=== PATIENT | male | born 1945 | race Caucasian/White ===

== ENCOUNTER 2017-01-31 20:56 | Inpatient (IN) | payer OTHER ==
--- NOTE | 2017-01-31 21:21 | HP ---
CIWA Score - CIWA Score Nausea/Vomitin Muscle Tremors: 3 Anxiety: 3 Agitation: 2 Paroxysmal Sweats: 1-Minimal Palms Moist Orientation: 0-Oriented Tacttile Disturbances: 2-Mild Itch/Numbness/Burn Auditory Disturbances: 2-Mild Harshness/Frighten Visual Disturbances: 1-Very Mild Sensitivity Headache: 2-Mild CIWA-Ar Total Score: 19 Admission ROS BHS - HPI Chief Complaint: i need help to stop drinking alcohol Allergies/Adverse Reactions: Allergies Allergy/AdvReac Type Severity Reaction Status Date / Time No Known Allergies Allergy Verified 01/31/17 21:17 History of Present Illness: this 71 years old male with alcohol dependence,seeking help to stop drinking, last treatment in 2014 [facility] alcohol related seizure in 2014 longest period of sobriety 5 years and one day ambulation with cane frequent falls Exam Limitations: No Limitations - Ebola screening Have you traveled outside of the country in the last 21 days: No Have you had contact with anyone from an Ebola affected area: No Do you have a fever: No - Review of Systems Constitutional: Chills, Loss of Appetite, Malaise, Night Sweats, Changes in sleep, Unintentional Wgt. Loss EENT: reports: Nose Congestion Respiratory: reports: Other (asthma) Cardiac: reports: No Symptoms Reported GI: reports: Constipated, Nausea, Vomiting, Abdominal cramping : reports: No Symptoms Reported Musculoskeletal: reports: Back Pain, Muscle Pain Integumentary: reports: Dryness Neuro: reports: Headache, Tremors Endocrine: reports: No Symptoms Reported Hematology: reports: No Symptoms Reported Psychiatric: reports: No Sypmtoms Reported, Judgement Intact, Mood/Affect Appropiate, Orientated x3 Patient History - Patient Medical History Hx Anemia: No Hx Asthma: Yes (on albuterol inhaler) Hx Chronic Obstructive Pulmonary Disease (COPD): No Hx Cancer: No Hx Cardiac Disorders: No Hx Congestive Heart Failure: No Hx Hypertension: Yes (no medication) Hx Hypercholesterolemia: No Hx Pacemaker: No HX Cerebrovascular Accident: No Hx Seizures: Yes (alcohol related seizure) Hx Dementia: No Hx Diabetes: No Hx Gastrointestinal Disorders: Yes (gerd) Hx Liver Disease: No Hx Genitourinary Disorders: No Hx Sexually Transmitted Disorders: No Hx Renal Disease (ESRD): No Hx Thyroid Disease: No Hx Human Immunodeficiency Virus (HIV): No (last tested 2004) Hx Hepatitis C: No Hx Depression: No Hx Suicide Attempt: No Hx Bipolar Disorder: No Hx Schizophrenia: No Other Medical History: no suicidal,no homicidal - Patient Surgical History Past Surgical History: Yes Other Surgical History: hemorrhiodectomy at age of 15 - PPD History Previous Implant?: Yes Documented Results: Negative w/o proof Implanted On Prior [facility] Admission?: No PPD to be Administered?: Yes - Smoking Cessation Smoking history: Former smoker Have you smoked in the past 12 months: No Initiated information on smoking cessation: Yes 'Breaking Loose' booklet given: 01/31/17 - Substance & Tx. History Hx Alcohol Use: Yes Hx Substance Use: No Substance Use Type: Alcohol Hx Substance Use Treatment: Yes (last 2014 at [facility]) - Substances Abused Alcohol Route: Oral Frequency: Daily Amount used: 2pints of vodka Age of first use: 10 Date of Last Use: 01/31/17 Family Disease History - Family Disease History Family Disease History: Other: Father (alcohol ,,alzeimer) Admission Physical Exam S - Vital Signs Vital Signs: Vital Signs Temperature 98.2 F 01/31/17 21:17 Pulse Rate 87 01/31/17 21:17 Respiratory Rate 18 01/31/17 21:17 Blood Pressure 126/73 01/31/17 21:17 O2 Sat by Pulse Oximetry (%) - Physical General Appearance: Yes: Moderate Distress, Tremorous, Irritable, Sweating, Anxious HEENTM: Yes: Normal ENT Inspection, CARLYN, Pharynx Normal Respiratory: Yes: Lungs Clear, Normal Breath Sounds, No Respiratory Distress Neck: Yes: Within Normal Limits Breast: Yes: Within Normal Limits Cardiology: Yes: Within Normal Limits, Regular Rhythm, Regular Rate, S1, S2 Abdominal: Yes: Within Normal Limits, Normal Bowel Sounds, Non Tender, Soft Genitourinary: Yes: Within Normal Limits Back: Yes: Muscle Spasm Musculoskeletal: Yes: Back pain, Muscle Pain Extremities: Yes: Within Normal Limits, Normal Capillary Refill, Normal Inspection, Normal Range of Motion, Tremors, Other (pain in the left knee) Neurological: Yes: Within Normal Limits, financial aid manager II-XII NML intact, Fully Oriented, Alert, Motor Strength 5/5 Integumentary: Yes: Dry Lymphatic: Yes: Within Normal Limits - Diagnostic (1) Alcohol dependence with uncomplicated withdrawal Current Visit: Yes Status: Acute (2) Alcohol related seizure Current Visit: Yes Status: Acute (3) Syncope Current Visit: Yes Status: Acute (4) Asthma Current Visit: Yes Status: Acute (5) GERD (gastroesophageal reflux disease) Current Visit: Yes Status: Acute (6) Arthritis of left knee Current Visit: Yes Status: Acute (7) Frequent falls Current Visit: Yes Status: Acute (8) Use of cane as ambulatory aid Current Visit: Yes Status: Acute Cleared for Admission S - Detox or Rehab [facility] Level of Care: Medically Managed Detox Regimen/Protocol: [place] Urine Drug Screen - Test Device Lot Number: [id number] Expiration Date: 10/29/18 - Control Is Test Valid: Yes - Results Drug Screen Negative: Yes
[2017-01-31] MEDS ORDERED: LOPERAMIDE HCL 2 MG CAPSULE PO PRN (21:47)
[2017-01-31] MEDS ORDERED: MENTHOL/PHENOL 1 EACH UD MM PRN (21:47)
[2017-01-31] MEDS ORDERED: MAGNESIUM HYDROX 2400MG/30ML ORAL SUSPENSION 30 ML CUP PO PRN (21:47)
[2017-01-31] MEDS ORDERED: MAG HYDROX/AL HYDROX/SIMETH 30 ML UNIT-DOSE CUP PO PRN (21:47)
[2017-01-31] MEDS ORDERED: P-EPHED 60MG/TRIPROLIDI 2.5MG TABLET PO PRN (21:47)
[2017-01-31] MEDS ORDERED: chlordiazePOXIDE HCL 25 MG CAPSULE PO ONE (21:47)
[2017-01-31] MEDS ORDERED: IBUPROFEN 400 MG TABLET (FP) PO PRN (21:47)
[2017-01-31] MEDS ORDERED: ACETAMINOPHEN 325 MG TABLET (FP) PO PRN (21:47)
[2017-01-31] MEDS ORDERED: diphenhydrAMINE HCL 50 MG CAPSULE PO PRN (21:47)
[2017-01-31] MEDS ORDERED: chlordiazePOXIDE HCL 25 MG CAPSULE PO PRN (21:47)
[2017-01-31] MEDS ORDERED: guaiFENesin/D-METHORPHAN HB 10 ML UNIT-DOSE CUPS PO PRN (21:47)
[2017-01-31] MEDS ORDERED: MAGNESIUM CITRATE 300 ML BOTTLE PO PRN (21:47)
[2017-01-31] MEDS ORDERED: ALBUTEROL SO4 6.7 GM HFA INHALER IH PRN (21:51)
[2017-01-31] MEDS: chlordiazePOXIDE HCL 25 MG CAPSULE PO SCH (23:07)
[2017-01-31] MEDS: THIAMINE HCL 100 MG TABLET (FP) PO SCH (23:21)
[2017-01-31] MEDS: BUDESONIDE/FORMETEROL FUMARATE 80/4.5 mcg INHALER IH SCH (23:22)
[2017-02-01] MEDS: chlordiazePOXIDE HCL 25 MG CAPSULE PO SCH ×4 (06:12→22:43)
[2017-02-01] MEDS: BUDESONIDE/FORMETEROL FUMARATE 80/4.5 mcg INHALER IH SCH ×2 (10:00→22:41)
--- NOTE | 2017-02-01 10:16 | PN ---
S CIWA - CIWA Score Nausea/Vomitin-Int. Nausea w/Dry Heave Muscle Tremors: 4-Moderate,w/Arms Extend Anxiety: 4-Mod. Anxious/Guarded Agitation: 4-Moderately Restless Paroxysmal Sweats: 3 Orientation: 0-Oriented Tacttile Disturbances: 1-Very Mild Itch/Numbness Auditory Disturbances: 0-None Visual Disturbances: 0-None Headache: 1-Very Mild CIWA-Ar Total Score: 21 BHS Progress Note (SOAP) Subjective: nausea, sweats, interrupted sleep, anxiety, indigestion, GERD reported requesting medication Objective: 02/01/17 10:15 Vital Signs - 8 hr 02/01/17 02/01/17 03:30 06:17 Temperature 98.1 F Pulse Rate 89 Respiratory 18 18 Rate Blood Pressure 126/79 labs pending Assessment: 02/01/17 10:15 withdrawal sx Plan: cont detox
[2017-02-01 10:32] LABS: MCHC 34.6 g/dl (32.0-35.9); MEAN CELL VOLUME 109.8 fl (80-96); MEAN PLT VOLUME 9.1 fl (7.5-11.1); PLATELET COUNT 169 K/MM3 (134-434); RDW 14.3 % (11.9-15.9); WHITE BLOOD COUNT 6.3 K/mm3 (4.0-10.0)
[2017-02-01 10:59] LABS: ALBUMIN 3.4 g/dl (3.4-5.0); ALK PHOS 49 U/L (45-117); ANION GAP 12 (8-16); BILIRUBIN,TOTAL 1.6 mg/dL (0.2-1.0); CALCIUM 8.5 mg/dL (8.5-10.1); CO2 32 mmol/L (21-32); GLUCOSE,RANDOM 90 mg/dL (74-106); SGOT/AST 38 U/L (15-37); SGPT/ALT 23 U/L (12-78); TOT PROT 6.8 g/dl (6.4-8.2)
[2017-02-01] MEDS: PRENATAL VITAMINS W/ FOLIC ACID TABLET (FP) PO SCH (11:18)
[2017-02-01] MEDS: PANTOPRAZOLE 40 MG TABLET (FP) PO SCH (11:21)
--- NOTE | 2017-02-01 13:54 | EKG ---
Test Reason : Blood Pressure : / mmHG Vent. Rate : 087 BPM Atrial Rate : 087 BPM P-R Int : 144 ms QRS Dur : 072 ms QT Int : 364 ms P-R-T Axes : 079 -06 057 degrees QTc Int : 438 ms NORMAL SINUS RHYTHM BASE LINE ARTIFACTS RSR' OR QR PATTERN IN V1 SUGGESTS RIGHT VENTRICULAR CONDUCTION DELAY POSSIBLE LEFT ATRIAL ENLARGEMENT SEPTAL INFARCT , AGE UNDETERMINED CANNOT BE EXCLUDED ABNORMAL ECG NO PREVIOUS ECGS AVAILABLE REPEAT EKG IF CLINICALLY INDICATED Confirmed by CHASTITY VAZQUEZ MD ([id number]) on 02/01/2017 1:54:40 PM Referred By: Confirmed By:CHASTITY VAZQUEZ MD
[2017-02-01] MEDS ORDERED: ONDANSETRON *ODT* 4 MG TABLET SL PRN (15:31)
[2017-02-01] MEDS ORDERED: ONDANSETRON *ODT* 4 MG TABLET SL ONE (15:31)
[2017-02-01] MEDS: THIAMINE HCL 100 MG TABLET (FP) PO SCH (22:41)
[2017-02-02] MEDS: chlordiazePOXIDE HCL 25 MG CAPSULE PO SCH ×4 (06:48→17:17)
[2017-02-02] MEDS: PANTOPRAZOLE 40 MG TABLET (FP) PO SCH (10:23)
[2017-02-02] MEDS: BUDESONIDE/FORMETEROL FUMARATE 80/4.5 mcg INHALER IH SCH ×2 (10:23→22:48)
[2017-02-02] MEDS: PRENATAL VITAMINS W/ FOLIC ACID TABLET (FP) PO SCH (10:23)
--- NOTE | 2017-02-02 10:35 | PN ---
S CIWA - CIWA Score Nausea/Vomitin Muscle Tremors: 4-Moderate,w/Arms Extend Anxiety: 4-Mod. Anxious/Guarded Agitation: 4-Moderately Restless Paroxysmal Sweats: 3 Orientation: 0-Oriented Tacttile Disturbances: 1-Very Mild Itch/Numbness Auditory Disturbances: 0-None Visual Disturbances: 0-None Headache: 1-Very Mild CIWA-Ar Total Score: 20 BHS Progress Note (SOAP) Subjective: nausea, sweats, itnerrupted sleep, anxiety, tremors Objective: 02/02/17 10:34 Vital Signs - 24 hr 02/01/17 02/01/17 02/01/17 14:12 18:09 23:11 Temperature 98.2 F 98.2 F 99.9 F H Pulse Rate 88 105 H 101 H Respiratory 18 20 20 Rate Blood Pressure 146/91 93/53 102/69 02/02/17 02/02/17 02/02/17 00:30 03:30 06:33 Temperature 97.7 F Pulse Rate 97 H Respiratory 18 18 20 Rate Blood Pressure 112/54 02/02/17 09:29 Temperature 98.2 F Pulse Rate 99 H Respiratory 16 Rate Blood Pressure 90/52 Laboratory Tests 02/01/17 02/01/17 02/01/17 07:00 07:00 07:00 WBC 6.3 RBC 2.95 L Hgb 11.2 L Hct 32.4 L MCV 109.8 H MCH 38.0 H MCHC 34.6 RDW 14.3 Plt Count 169 MPV 9.1 Sodium 130 L Potassium 4.0 Chloride 86 L Carbon Dioxide 32 Anion Gap 12 BUN 46 H Creatinine 2.0 H Creat Clearance w eGFR 33.01 Random Glucose 90 Calcium 8.5 Total Bilirubin 1.6 H AST 38 H ALT 23 Alkaline Phosphatase 49 Total Protein 6.8 Albumin 3.4 RPR Titer Nonreactive u/a pending Assessment: 02/02/17 10:35 withdrawal sx, u/a Pending Plan: cont detox
[2017-02-02 18:42] LABS: URINE APPEARANCE CLEAR; URINE BILIRUBIN NEGATIVE (NEGATIVE); URINE BLOOD NEGATIVE (NEGATIVE); URINE COLOR YELLOW; URINE GLUCOSE (UA) 1+ (NEGATIVE); URINE KETONE NEGATIVE (NEGATIVE); URINE LEUK ESTERASE NEGATIVE (NEGATIVE); URINE NITRITE NEGATIVE (NEGATIVE); URINE PROTEIN NEGATIVE (NEGATIVE); URINE UROBILINOGEN 4.0 E.U/dl mg/dL (0.2-1.0)
[2017-02-02] MEDS: chlordiazePOXIDE 5 MG CAPSULE PO SCH (22:47)
[2017-02-02] MEDS: THIAMINE HCL 100 MG TABLET (FP) PO SCH (22:48)
[2017-02-03] MEDS: chlordiazePOXIDE 5 MG CAPSULE PO SCH ×2 (05:48→10:48)
[2017-02-03] MEDS: BUDESONIDE/FORMETEROL FUMARATE 80/4.5 mcg INHALER IH SCH ×2 (10:46→22:17)
[2017-02-03] MEDS: PANTOPRAZOLE 40 MG TABLET (FP) PO SCH (10:46)
[2017-02-03] MEDS: PRENATAL VITAMINS W/ FOLIC ACID TABLET (FP) PO SCH (10:46)
--- NOTE | 2017-02-03 11:17 | PN ---
BHS Progress Note (SOAP) Subjective: feeling better very little sweats Objective: 02/03/17 11:17 Vital Signs Temperature 99.1 F 02/03/17 10:54 Pulse Rate 123 H 02/03/17 10:54 Respiratory Rate 18 02/03/17 10:54 Blood Pressure 140/55 02/03/17 10:54 O2 Sat by Pulse Oximetry (%) awake/alert ambulating no acute distress Assessment: 02/03/17 11:17 mild withdrawal sx Plan: continue detox increase fluids d/c in am
[2017-02-03] MEDS: THIAMINE HCL 100 MG TABLET (FP) PO SCH (22:55)
[2017-02-03] MEDS ORDERED: ACETAMINOPHEN 325 MG TABLET (FP) PO ONE (23:25)
--- NOTE | 2017-02-03 23:37 | PN ---
S Progress Note Note: temp 101.7, ap 123, bp 87/54 observed patient lying on bed, alert oriented x 3, coherent, speech clearly, tolerate fluid well, no acute distress, denies pain, no shortness of breath, S1S2 tylenal 650 mg x 1 dose now + ekg x 1 now ap 103, normal sinus rhythm
[2017-02-03] MEDS: chlordiazePOXIDE HCL 10 MG CAPSULE PO SCH (23:54)
[2017-02-04] MEDS: chlordiazePOXIDE HCL 10 MG CAPSULE PO SCH (06:20)
--- NOTE | 2017-02-04 08:37 | DS ---
[facility] Discharge Summary Admission Date: 01/31/17 Discharge Date: 02/04/17 - History Present History: Alcohol Dependence Pertinent Past History: GERD, blackouts, anxiety, insomnia, depression - Physical Exam Results Vital Signs: Vital Signs Temperature 98.3 F 02/04/17 05:52 Pulse Rate 88 02/04/17 05:52 Respiratory Rate 18 02/04/17 05:52 Blood Pressure 116/73 02/04/17 05:52 O2 Sat by Pulse Oximetry (%) Laboratory Tests 02/01/17 02/01/17 02/01/17 07:00 07:00 07:00 WBC 6.3 RBC 2.95 L Hgb 11.2 L Hct 32.4 L MCV 109.8 H MCH 38.0 H MCHC 34.6 RDW 14.3 Plt Count 169 MPV 9.1 Sodium 130 L Potassium 4.0 Chloride 86 L Carbon Dioxide 32 Anion Gap 12 BUN 46 H Creatinine 2.0 H Creat Clearance w eGFR 33.01 Random Glucose 90 Calcium 8.5 Total Bilirubin 1.6 H AST 38 H ALT 23 Alkaline Phosphatase 49 Total Protein 6.8 Albumin 3.4 Urine Color Urine Appearance Urine pH Ur Specific [place] Urine Protein Urine Glucose (UA) Urine Ketones Urine Blood Urine Nitrite Urine Bilirubin Urine Urobilinogen Ur Leukocyte Esterase RPR Titer Nonreactive 02/02/17 14:00 WBC RBC Hgb Hct MCV MCH MCHC RDW Plt Count MPV Sodium Potassium Chloride Carbon Dioxide Anion Gap BUN Creatinine Creat Clearance w eGFR Random Glucose Calcium Total Bilirubin AST ALT Alkaline Phosphatase Total Protein Albumin Urine Color Yellow Urine Appearance Clear Urine pH 6.0 Ur Specific [place] 1.010 Urine Protein Negative Urine Glucose (UA) 1+ H Urine Ketones Negative Urine Blood Negative Urine Nitrite Negative Urine Bilirubin Negative Urine Urobilinogen 4.0 e.u/dl Ur Leukocyte Esterase Negative RPR Titer Pertinent Admission Physical Exam Findings: withdrawal sx - Treatment Hospital Course: Detox Protocol Followed, Detoxed Safely, Responded well, Discharged Condition Good, Rehab Referral Accepted Patient has Accepted a Rehab Referral to: Yes - Medication Discharge Medications: Ambulatory Orders Unobtainable [Unobtainable] 01/31/17 - Diagnosis (1) Alcohol related seizure Current Visit: Yes Status: Resolved (2) Syncope Current Visit: Yes Status: Resolved (3) Alcohol dependence with uncomplicated withdrawal Current Visit: Yes Status: Chronic (4) GERD (gastroesophageal reflux disease) Current Visit: Yes Status: Chronic Qualifiers: Esophagitis presence: without esophagitis Qualified Code(s): K21.9 - Gastro-esophageal reflux disease without esophagitis (5) Arthritis of left knee Current Visit: No Status: Chronic (6) Asthma Current Visit: No Status: Chronic Qualifiers: Asthma severity: mild intermittent
[2017-02-04] MEDS: PANTOPRAZOLE 40 MG TABLET (FP) PO SCH (09:28)
[2017-02-04] MEDS: PRENATAL VITAMINS W/ FOLIC ACID TABLET (FP) PO SCH (09:28)
[2017-02-04 11:08] VITALS: BP 88/62; PULSE 127; TEMP 99
== END 2017-02-04 11:05 | disposition home or self-care (01) | DRG 897 ==
LOC: YASASADMIT 20:56 → Y6N 21:12
PROVIDERS: ADMIT Internal Medicine Addiction Medicine; ATTEND Internal Medicine
PROC: HZ2ZZZZ Detoxification Services for Substance Abuse Treatment (ICD-10-PCS; principal; 2017-01-31)
DX: F10.230 Alcohol dependence with withdrawal, uncomplicated (principal); K21.9 Gastro-esophageal reflux disease without esophagitis; M13.862 Other specified arthritis, left knee; J45.20 Mild intermittent asthma, uncomplicated; R29.6 Repeated falls; Z86.69 Personal history of other diseases of the nervous system and sense organs; Z86.79 Personal history of other diseases of the circulatory system; Z99.89 Dependence on other enabling machines and devices; Z87.891 Personal history of nicotine dependence
CPT/HCPCS: 36415; 80053; 81003; 85027; 86593; 93005; 93010